=== PATIENT | male | born 1970 | race African-American/Black ===

== ENCOUNTER 2021-05-22 18:42 | Emergency (ER) | payer OTHER, SELFPAY ==
[2021-05-22] VITALS (21 sets, daily range): BP systolic 108–122; BP diastolic 76–89; PULSE 75–102; RESP 6–24; TEMP 36.4; O2SAT 96–100
--- NOTE | ~2021-05-22 | XR_ITS ---
EXAMINATION: XR chest 2V DATE: 05/22/2021 20:06 INDICATION: Low abdominal pain. TECHNIQUE: Frontal and lateral views of the chest were obtained. COMPARISON: None. FINDINGS: The lungs are hyperexpanded with lucencies, consistent with emphysema. There is mild atelec tasis versus scarring in the midlung zones. No pleural effusion or pneumothorax. The heart size is no rmal. IMPRESSION: 1. Emphysema. 2. Mild atelectasis versus scarring in the midlung zones. Reviewed, dictated and finalized at location E. 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
--- NOTE | ~2021-05-22 | CT_ITS ---
EXAMINATION: CT abdomen pelvis w con DATE: 05/22/2021 20:51 INDICATION: Low abdominal pain. Groin pain. TECHNIQUE: Computed tomography (CT) of the abdomen and pelvis was performed with 100 mL Omnipaque 350 intravenous contrast. Automated exposure control and iterative reconstruction technique were employe d. The dose-length product was 173.87 mGy-cm. COMPARISON: None. FINDINGS: The visualized portions of the lung bases demonstrate mild emphysema and mild atelectasis. No pleural effusion. The heart size is normal. No pericardial effusion. There is a 4 mm cyst in the l iver. The gallbladder is normal. Calcifications in the spleen are consistent with old granulomatous d isease. The pancreas, adrenal glands, and kidneys are normal. There are no dilated loops of bowel. Th e appendix is not visualized. There are no pathologically enlarged lymph nodes. There is no free intr aperitoneal fluid. There is a benign bone island in right femoral head. There is mild lumbar spondylo sis. IMPRESSION: 1. No etiology for the patient's symptoms. Reviewed, dictated and finalized at location E. 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
[2021-05-22 20:00] LABS: Basophils Percent Auto 0.8 % (0.2-1.2); Eosinophils Absolute Auto 0.2 K/mm3 (0-0.3); Eosinophils Percent Auto 3.2 % (0-4.4); Hematocrit 37.8 % (42.0-52.0); Hemoglobin 12.5 g/dL (14.0-18.0); Immature Granulocyte Absolute 0.01 K/mm3 (0.00-0.031); Immature Granulocyte Percent A 0.2 % (0-0.5); Lymphocytes Absolute Auto 2.16 K/mm3 (0.9-3.2); Lymphocytes Percent Auto 45.4 % (18.3-44.2); Mean Corpuscular HGB Conc 33.1 g/dl (32-36); Mean Corpuscular Volume 84.8 fl (80-100); Mean Platelet Volume 8.2 fl (7.4-10.4); Monocytes Absolute Auto 0.3 K/mm3 (0.1-0.6); Monocytes Percent Auto 6.9 % (2.6-8.5); Neutrophils Absolute Auto 2.1 K/mm3 (1.3-6.7); Neutrophils Percent Auto 43.5 % (45.5-73.1); Platelet Count Result 309 k/mm3 (150-375); Red Blood Count 4.46 M/mm3 (4.6-6.20); Red Cell Distribution Width 15.3 % (11.5-14.5); White Blood Count 4.8 K/mm3 (4.5-10.0)
[2021-05-22] MEDS: SODIUM CHLORIDE 0.9% IV 1,000 ML 999 ML IV CONT (20:06)
[2021-05-22 20:14] LABS: Alanine Aminotransferase 17 U/L (4-50); Albumin Level 4.1 g/dL (3.5-5.1); Alkaline Phosphatase 84 U/L (38-126); Anion Gap 3 mmol/L (8-16); Aspartate Amino Transferase 29 U/L (17-59); Bilirubin,Total 0.2 mg/dL (0.2-1.3); Blood Urea Nitrogen 11 mg/dL (9-20); Carbon Dioxide 26 mmol/L (22-30); Chloride 106 mmol/L (98-107); Estimated CRCL calculation 67 ml/min; Estimated Glomerular Filt Rate > 60; Glucose 83 mg/dL (65-110); Lipase 164 U/L (23-300); Potassium 3.9 mmol/L (3.4-5.0); Sodium 135 mmol/L (137-145)
[2021-05-22 21:19] LABS: Add Urine Microscopic? NO; Appearance Urine Clear (Clear); Bilirubin Urine Negative (Negative); Blood Urine Negative (Negative); Color Urine Straw (Yellow); Glucose Urine UA Negative (Negative); Ketones Urine Negative (Negative); Leukocyte Esterase Ur Negative LEU/UL (Negative); Nitrate Urine Negative (Negative); Protein Urine Negative (Negative); Specific Grav Ur 1.024 (1.001-1.035); Urobilinogen Urine Negative mg/dL (<2.0)
--- NOTE | 2021-05-22 21:57 | ED.GENADULT ---
HPI - General Adult General Chief complaint: Abdominal Pain Stated complaint: Groin Pain Time Seen by Provider: 05/22/21 18:59 History of Present Illness HPI narrative: Patient is a 51-year-old male who presents ER with lower abdominal pain. Located right lower quadrant. Moves into his back from his hips. Ongoing over the last couple of months but has worsened over the last 3 days. No known injury. Worse with movement and palpation. Makes him feel like he needs to have a bowel movement but does not improve when he takes a laxative or prunes. No history of constipation. Denies urinary frequency urgency or dysuria. No hematuria. No history of kidney stones. No history of diverticulitis. Last colonoscopy 2 years ago. Reports it was normal. Endorses recent weight loss. Related Data Allergies Allergy/AdvReac Type Severity Reaction Status Date / Time No Known Allergies Allergy Verified 05/22/21 18:48 Review of Systems Review of Systems: All systems reviewed & are unremarkable except as noted in HPI and below Constitutional: Constitutional: Denies chills, Denies fever(s) and Denies weakness ENT: Denies nasal congestion and Denies sore throat Gastrointestinal: Gastrointestinal: Reports abdominal pain, Reports bloating, Reports constipation, Denies nausea and Denies vomiting Genitourinary: Genitourinary: Denies oliguria, Denies dysuria, Denies urinary frequency and Denies urinary incontinence Musculoskeletal: Musculoskeletal: Denies back pain and Denies muscle cramps Neurologic: Denies focal weakness and Denies numbness PMFSH Past Medical History Medical History (Updated 05/22/21 @ 22:05 by Tanner Landis MD) Healthy adult male Surgical History Surgical History (Updated 05/22/21 @ 22:05 by Tanner Landis MD) History of colonoscopy Social History Social History (Updated 05/22/21 @ 22:05 by Tanner Landis MD) Smoking status: Current every day smoker Exam Narrative: GENERAL: Well-appearing, thin, and in no acute distress. HEAD: Normocephalic, atraumatic. CHEST: Clear to auscultation. No respiratory distress. HEART: Regular rate and rhythm. Normal peripheral pulses. ABDOMEN: Soft, nondistended. Tender palpation right lower quadrant with voluntary guarding. EXTREMITIES: Normal range of motion. No edema. SKIN: Warm, dry, no rash. NEURO: N Alert and oriented x3. PSYCH: Normal mood and affect. Course Course Emergency Course: Unremarkable evaluation. Unsure if cause of patient's discomfort. Recommend scheduled anti-inflammatories and follow-up with PCP. reporting patient may be having retrograde ejaculation. Recommend he see a urologist. No evidence of infection to indicate prostatitis. Vital Signs Vital signs: Vital Signs Temperature 97.5 F L 05/22/21 18:46 Pulse Rate 102 H 05/22/21 18:46 Respiratory Rate 18 05/22/21 18:46 Blood Pressure 122/82 05/22/21 18:46 Pulse Oximetry 99 05/22/21 18:46 Temperature 97.5 F L 05/22/21 18:46 Pulse Rate 90 05/22/21 19:46 Respiratory Rate 12 05/22/21 19:46 Blood Pressure 113/82 05/22/21 19:45 Pulse Oximetry 100 05/22/21 19:46 Medical Decision Making Vital Signs Vital Signs: Vital Signs Temperature 97.5 F L 05/22/21 18:46 Pulse Rate 102 H 05/22/21 18:46 Respiratory Rate 18 05/22/21 18:46 Blood Pressure 122/82 05/22/21 18:46 Pulse Oximetry 99 05/22/21 18:46 Temperature 97.5 F L 05/22/21 18:46 Pulse Rate 90 05/22/21 19:46 Respiratory Rate 12 05/22/21 19:46 Blood Pressure 113/82 05/22/21 19:45 Pulse Oximetry 100 05/22/21 19:46 Lab Data Result diagrams: 05/22/21 19:52 05/22/21 19:52 Labs: Lab Results 05/22/21 05/22/21 05/22/21 Range/Units 19:52 19:52 21:09 WBC 4.8 (4.5-10.0) K/mm3 RBC 4.46 L (4.6-6.20) M/mm3 Hgb 12.5 L (14.0-18.0) g/dL Hct 37.8 L (42.0-52.0) % MCV 84.8 (80-100) fl MCH 28.0 (26-34)
== END 2021-05-22 22:20 | disposition home or self-care (01) ==
PROVIDERS: Emergency Provider Emergency Medicine; PCP Internal Medicine
DX: R10.31 Right lower quadrant pain (principal); F17.200 Nicotine dependence, unspecified, uncomplicated; J43.9 Emphysema, unspecified
CPT/HCPCS: 36415; 71046; 74177; 80053; 81003; 83690; 85025; 96360; 99284; J7030; Q9967

== ENCOUNTER 2025-03-11 14:36 | Emergency (ER) | payer OTHER, SELFPAY ==
[2025-03-11] VITALS (35 sets, daily range): BP systolic 96–140; BP diastolic 63–116; PULSE 84–116; RESP 6–45; TEMP 36.6–37; O2SAT 87–100
--- NOTE | ~2025-03-11 | XR_ITS ---
EXAMINATION: XR chest 1V portable COMPARISON: No comparisons available. HISTORY: ABI, asthma FINDINGS: The lungs are clear, no effusion. No pneumothorax. Heart is normal size. Mediastinal and hilar contours are within normal limits. Bony thorax no acute abnormality. Miscellaneous: None Impression: No acute cardiopulmonary abnormality. Reviewed, dictated and finalized at location [facility] [employer] Impression: No acute cardiopulmonary abnormality.
--- NOTE | 2025-03-11 14:42 | ECG_ITS ---
Test Date: 2025-03-11 15:05:23 Measurements Intervals Velma Rate: 98 P: 89 HI: 155 QRS: 82 QRSD: 78 T: 70 QT: 354 QTc: 453 Interpretive Statements SINUS RHYTHM RIGHT ATRIAL ENLARGEMENT POSSIBLE LEFT ATRIAL ENLARGEMENT NONSPECIFIC ST & T-WAVE ABNORMALITY- INFERIOR LEADS BASELINE ARTIFACT- I, II, III, AVR, AVL, V1 BORDERLINE ECG No previous ECG available for comparison Electronically Signed On 03-11-2025 15:24:37 POWDER WORKER by Dean Roberts D.O.
[2025-03-11] MEDS: MIDAZOLAM HCL (*CRX) 2 MG/2 ML VIAL IV PUSH (14:52)
[2025-03-11] MEDS: LACTATED RINGERS 1,000 ML 999 ML IV CONT (14:57)
[2025-03-11 15:06] LABS: Fractional Inspired Oxygen 100 %; HCO3 VBG 20.3 mEq/l (24.0-30.0); PCO2 VBG 31.0 mmHg (42.0-48.0)
[2025-03-11 15:11] LABS: Hematocrit 51.0 % (42.0-52.0); Hemoglobin 16.7 g/dL (14.0-18.0); Immature Granulocyte Percent A 0.4 % (0-0.5); Lymphocytes Absolute Auto 1.30 K/mm3 (0.9-3.2); Mean Corpuscular HGB Conc 32.7 g/dl (32-36); Mean Corpuscular Hemoglobin 27.7 pg (26-34); Mean Corpuscular Volume 84.6 fl (80-100); Nucleated Red Blood Cells Absolute Auto 0.000 K/mm3 (0.0-0.012); Nucleated Red Blood Cells Perc 0.0 % (0.0-0.2); Platelet Count Result 376 k/mm3 (150-375); Red Blood Count 6.03 M/mm3 (4.6-6.20); White Blood Count 5.1 K/mm3 (4.5-10.0)
[2025-03-11] MEDS: ALBUTEROL SULFATE NEB 2.5 MG/3 ML INH 15 MG (16:07)
[2025-03-11] MEDS: ALBUTEROL SULFATE NEB 2.5 MG/3 ML INH (16:08)
[2025-03-11 16:10] LABS: PO2 VBG < 27.0 mmHg (35.0-45.0); pH VBG 7.435 (7.300-7.400)
[2025-03-11 16:11] LABS: Non-Invasive Expiratory Pressure 8 CMH2O; Non-Invasive Inspiratory Pressure 16 CMH2O; Non-Invasive Vent Rate 20 /MIN
[2025-03-11] MEDS: MAGNESIUM SULF 2 GM/WATER 50ML 2 GM/50 ML BAG IVPB (16:21)
[2025-03-11 16:26] LABS: Alanine Aminotransferase 24 U/L (6-50); Albumin Level 4.4 g/dL (3.5-5.1); Alkaline Phosphatase 80 U/L (38-126); Anion Gap 7 mmol/L (4-12); Aspartate Amino Transferase 31 U/L (17-59); Bilirubin,Total 0.5 mg/dL (0.2-1.3); Blood Urea Nitrogen 24 mg/dL (9-20); Calcium 9.9 mg/dL (8.4-10.2); Carbon Dioxide 27 mmol/L (22-30); Chloride 101 mmol/L (98-107); Estimated Glomerular Filt Rate > 60; Glucose 115 mg/dL (65-110); Magnesium 2.2 mg/dL (1.6-2.3); Potassium 4.2 mmol/L (3.4-5.0); Sodium 135 mmol/L (137-145); Total Protein 7.5 g/dL (6.3-8.2)
[2025-03-11 16:37] LABS: NT Pro B Type Natriuretic Pept 95 pg/mL (19.9-100); Troponin I < 0.012 ng/mL (0.000-0.034)
[2025-03-11 16:50] LABS: Influenza A QL RT-PCR Negative (Negative); Influenza B QL RT-PCR Negative (Negative); RSV RNA, RT-PCR Negative (Negative); SARS-CoV-2 RNA PCR Negative (Negative)
[2025-03-11 16:56] LABS: Acetaminophen < 10 ug/mL (10-30); Salicylate < 1.0 mg/dL (2-20)
--- NOTE | 2025-03-11 17:56 | PC.NURSE ---
Pt removed from bipap and placed on 2LO2. SPO2 100%. Pt then placed on RA. SPO2 100%
--- NOTE | 2025-03-11 18:24 | ED.SOB ---
HPI - SOB/Dyspnea General Chief Complaint: Shortness of Breath/Dyspnea <Trinh De Paz MD - Last Filed: 03/11/25 18:35> Stated Complaint: SOB <Trinh De Paz MD - Last Filed: 03/11/25 18:35> Time Seen by Provider: 03/11/25 14:42 <Trinh De Paz MD - Last Filed: 03/11/25 18:35> History of Present Illness HPI Narrative: Patient with h/o asthma presents with ABI, ongoing for a while but much worse today, EMS called to pt at [facility] and started CPAP, nebs, gave solumedrol IM. <Trinh De Paz MD - Last Filed: 03/11/25 18:35> Related Data Home Medications: Home Medications ?Medication ?Instructions ?Recorded ?Confirmed ?Last Taken ?Type albuterol 90 mcg/actuation aerosol 90 mcg inhalation Q8-12H PRN asthma 03/11/25 03/11/25 03/10/25 History inhaler aripiprazole 10 mg tablet 10 mg PO HS 03/11/25 03/11/25 Unknown History clonidine HCl 0.2 mg tablet 0.2 mg PO DAILY 03/11/25 03/11/25 Unknown History fluoxetine 40 mg capsule 40 mg PO QAM 03/11/25 03/11/25 Unknown History hydroxyzine HCl 10 mg tablet 10 mg PO TID PRN itching 03/11/25 03/11/25 Unknown History mirtazapine 15 mg tablet 15 mg PO HS 03/11/25 03/11/25 Unknown History <Trinh De Paz MD - Last Filed: 03/11/25 18:35> Allergies/Adverse Reactions: Allergies Allergy/AdvReac Type Severity Reaction Status Date / Time No Known Allergies Allergy Verified 03/11/25 14:51 <Trinh De Paz MD - Last Filed: 03/11/25 18:35> Review of Systems Review of Systems: ROS unobtainable: Yes unobtainable due to medical condition <Trinh De Paz MD - Last Filed: 03/11/25 18:35> PMF Past Medical History Medical History: Medical History (Updated 03/12/25 @ 02:31 by Horace Elias DO) Healthy adult male <Trinh De Paz MD - Last Filed: 03/11/25 18:35> Surgical History Surgical History: Surgical History (Updated 05/22/21 @ 22:05 by Tanner Landis MD) History of colonoscopy <Trinh De Paz MD - Last Filed: 03/11/25 18:35> Social History Social History: Social History (Updated 05/22/21 @ 22:05 by Tanner Landis MD) Smoking status: Current every day smoker <Trinh De Paz MD - Last Filed: 03/11/25 18:35> Exam Narrative: EXAMINATION OF ORGAN SYSTEMS/BODY AREAS: Constitutional: Vital signs per nursing GENERAL: Significant respiratory distress, tripoding HEAD: Normal with no signs of head trauma. EYES: EOMI, conjunctiva normal ENT: Temporal wasting LUNGS: Coarse lung sounds HEART: [Regular rate and rhythm] ABD: [Soft], [nontender to palpation] EXT: Normal range of motion SKIN: [No rashes or lesions.] NEURO: [Alert. No gross focal sensory or strength deficits.] PSYCH: Extremely anxious affect <Trinh De Paz MD - Last Filed: 03/11/25 18:35> Course Course Emergency Course: 19:00 - Patient signed out to me (Dr. Elias) by off going provider Dr. De Paz at shift change. Patient is medically cleared, pending central intake for suicidal ideations. Central intake has evaluated the patient, agree that patient meets inpatient criteria for psychiatric hospitalization, will work on placement. Patient accepted for transfer by Dr. Griggs at [facility]. <Horace Elias DO - Last Filed: 03/12/25 05:07> Vital Signs Vital signs: Vital Signs Temperature 98 F 03/11/25 14:32 Pulse Rate 108 H 03/11/25 14:32 Respiratory Rate 32 H 03/11/25 14:32 Pulse Oximetry 100 03/11/25 14:32 Oxygen Delivery BiPAP 03/11/25 14:32 Temperature 98.6 F 03/11/25 23:34 Pulse Rate 106 H 03/11/25 23:34 Respiratory Rate 16 03/11/25 23:34 Blood Pressure 102/63 03/11/25 23:34 Pulse Oximetry 95 03/11/25 23:34 Oxygen Delivery BiPAP 03/11/25 15:05 <Trinh De Paz MD - Last Filed: 03/11/25 18:35> Vital Signs Temperature 98 F 03/11/25 14:32 Pulse Rate 108 H 03/11/25 14:32 Respiratory Rate 32 H 03/11/25 14:32 Pulse Oximetry 100 03/11/25 14:32 Oxygen Delivery BiPAP 03/11/25 14:32 Temperature 98.6 F 03/11/25 23:34 Pulse Rate 106 H 03/11/25 23:34 Respiratory Rate 16 03/11/25 23:34 Blood Pressure 102/63 03/11/25 23:34 Pulse Oximetry 95 03/11/25 23:34 Oxygen Delivery BiPAP 03/11/25 15:05 <Horace Elias DO - Last Filed: 03/12/25 05:07> [facility] MDM Narrative Medical decision making narrative: ED COURSE AND MEDICAL DECISION MAKIN-year-old male with acute dyspnea and wheezing likely due to acute asthma exacerbation based on history and exam. On exam he does appear to be in distress, tripoding, extremely anxious. Started on BiPAP, DuoNebs given, he already got steroids from EMS, magnesium is started. Patient monitored in the ED for a couple of hours and on reevaluation is feeling significantly better. Taken off BiPAP and oxygen. He is now very comfortable on room air, no respiratory distress or accessory muscle use. Good air movement bilateral lungs. Speaking full sentences. Unfortunately at this time, patient now says that he is actively suicidal, when asked if he had a plan, he says that there are many ways. He does have a history of depression and is supposed to be on multiple medications, but he has not seen a psychiatrist and a while, not taking his medications, partly because he is too busy at work and partly because he has no motivation to. He is having full conversations with his father here, they are both agreeable to possible transfer for psychiatric evaluation or hospitalization. Signed out to oncoming ER physician pending medical clearance pending urine labs, but in my assessment, patient is completely medically stable, he is not on oxygen, he has no respiratory distress, he has been off BiPAP for 2 hours without any issues. <Trinh De Paz MD - Last Filed: 03/11/25 18:35> Differential Diagnosis Differential Diagnosis: Asthma, pneumonia, COPD, suicidal/depression <Trinh De Paz MD - Last Filed: 03/11/25 18:35> Lab Data Result diagrams: 03/11/25 14:49 03/11/25 16:03 <Trinh De Paz MD - Last Filed: 03/11/25 18:35> Labs: Lab Results 03/11/25 03/11/25 03/11/25 Range/Units 14:48 14:49 16:03 WBC 5.1 (4.5-10.0) K/mm3 RBC 6.03 (4.6-6.20) M/mm3 Hgb 16.7 D (14.0-18.0) g/dL Hct 51.0 (42.0-52.0) % MCV 84.6 (80-100) fl MCH 27.7 (26-34) pg MCHC 32.7 (32-36) g/dl RDW 15.0 H (11.5-14.5) % Plt Count 376 H (150-375) k/mm3 MPV 8.4 (7.4-10.4) fl Immature Gran % (Auto) 0.4 (0-0.5) % Neut % (Auto) 70.0 (45.5-73.1) % Lymph % (Auto) 25.3 (18.3-44.2) % [place] % (Auto) 3.3 (2.6-8.5) % Eos % (Auto) 0.2 (0-4.4) % Baso % (Auto) 0.8 (0.2-1.2) % Lymph # (Auto) 1.30 (0.9-3.2) K/mm3 [place] # (Auto) 0.2 (0.1-0.6) K/mm3 Eos # (Auto) 0.0 (0-0.3) K/mm3 Baso # (Auto) 0.0 (0.0-0.1) K/mm3 Abs Immat Gran (auto) 0.02 (0.00-0.031) K/mm3 Absolute Neuts (auto) 3.6 (1.3-6.7) K/mm3 Absolute Nucleated RBC 0.000 (0.0-0.012) K/mm3 Nucleated RBC % 0.0 (0.0-0.2) % Expiratory Pressure 8 CMH2O Inspiratory Pressure 16 CMH2O Sodium 135 L (137-145) mmol/L Potassium 4.2 (3.4-5.0) mmol/L Chloride 101 (98-107) mmol/L Carbon Dioxide 27 (22-30) mmol/L Anion Gap 7 (4-12) mmol/L BUN 24 H D (9-20) mg/dL Creatinine 1.07 (0.7-1.3) mg/dL Estim Creat Clear Calc Not Reportable Estimated GFR > 60 (59 - ) Glucose 115 H (65-110) mg/dL Lactic Acid 4.4 H* (0.7-2.0) mmol/L Calcium 9.9 (8.4-10.2) mg/dL Magnesium 2.2 (1.6-2.3) mg/dL Total Bilirubin 0.5 (0.2-1.3) mg/dL AST 31 (17-59) U/L ALT 24 (6-50) U/L Alkaline Phosphatase 80 (38-126) U/L Troponin I < 0.012 (0.000-0.034) ng/mL NT-Pro-B Natriuret Pep 95 (19.9-100) pg/mL Total Protein 7.5 (6.3-8.2) g/dL Albumin 4.4 (3.5-5.1) g/dL TSH (Reflex) 0.881 (0.465-4.68) uIU/mL Urine Color (Yellow) Urine Appearance (Clear) Urine pH (5.0-9.0) Ur Specific [place] (1.001-1.035) Urine Protein (Negative) mg/dL Urine Glucose (UA) (Negative) mg/dL Urine Ketones (Negative) mg/dL Ur Blood (Man) (Negative) Urine Nitrate (Negative) Urine Bilirubin (Negative) Urine Urobilinogen (<2.0) mg/dL Add Ur Microanalysis Leukocyte Esterase Rfl (Negative) NINO/UL Urine RBC (0-2) /hpf Urine WBC (0-3) /hpf Ur Squamous Epith Cells (Few) /hpf Urine Bacteria /hpf Urine Casts Hyaline Casts (None) /lpf Salicylates < 1.0 L (2-20) mg/dL Urine Opiates Screen (Negative) Urine Methadone Screen (Negative) Acetaminophen < 10 L (10-30) ug/mL Ur Barbiturates Screen (Negative) Ur Phencyclidine Scrn (Negative) Ur Amphetamine Screen (Negative) U Benzodiazepines Scrn (Negative) Urine Cocaine Screen (Negative) U Cannabinoids Screen (Negative) Ethyl Alcohol < 10 (<10) mg/dL Influenza A (RT-PCR) Negative (Negative) Influenza B (RT-PCR) Negative (Negative) RSV (RT-PCR) Negative (Negative) SARS-CoV-2 RNA (RT-PCR) Negative (Negative) 03/11/25 03/11/25 Range/Units 18:16 18:38 WBC (4.5-10.0) K/mm3 RBC (4.6-6.20) M/mm3 Hgb (14.0-18.0) g/dL Hct (42.0-52.0) % MCV (80-100) fl MCH (26-34) pg MCHC (32-36) g/dl RDW (11.5-14.5) % Plt Count (150-375) k/mm3 MPV (7.4-10.4) fl Immature Gran % (Auto) (0-0.5) % Neut % (Auto) (45.5-73.1) % Lymph % (Auto) (18.3-44.2) % [place] % (Auto) (2.6-8.5) % Eos % (Auto) (0-4.4) % Baso % (Auto) (0.2-1.2) % Lymph # (Auto) (0.9-3.2) K/mm3 [place] # (Auto) (0.1-0.6) K/mm3 Eos # (Auto) (0-0.3) K/mm3 Baso # (Auto) (0.0-0.1) K/mm3 Abs Immat Gran (auto) (0.00-0.031) K/mm3 Absolute Neuts (auto) (1.3-6.7) K/mm3 Absolute Nucleated RBC (0.0-0.012) K/mm3 Nucleated RBC % (0.0-0.2) % Expiratory Pressure CMH2O Inspiratory Pressure CMH2O Sodium (137-145) mmol/L Potassium (3.4-5.0) mmol/L Chloride (98-107) mmol/L Carbon Dioxide (22-30) mmol/L Anion Gap (4-12) mmol/L BUN (9-20) mg/dL Creatinine (0.7-1.3) mg/dL Estim Creat Clear Calc Estimated GFR (59 - ) Glucose (65-110) mg/dL Lactic Acid 2.1 H (0.7-2.0) mmol/L Calcium (8.4-10.2) mg/dL Magnesium (1.6-2.3) mg/dL Total Bilirubin (0.2-1.3) mg/dL AST (17-59) U/L ALT (6-50) U/L Alkaline Phosphatase (38-126) U/L Troponin I (0.000-0.034) ng/mL NT-Pro-B Natriuret Pep (19.9-100) pg/mL Total Protein (6.3-8.2) g/dL Albumin (3.5-5.1) g/dL TSH (Reflex) (0.465-4.68) uIU/mL Urine Color Yellow (Yellow) Urine Appearance Clear (Clear) Urine pH 5.5 (5.0-9.0) Ur Specific [place] 1.024 (1.001-1.035) Urine Protein 1+ H (Negative) mg/dL Urine Glucose (UA) Negative (Negative) mg/dL Urine Ketones 2+ H (Negative) mg/dL Ur Blood (Man) Negative (Negative) Urine Nitrate Negative (Negative) Urine Bilirubin Negative (Negative) Urine Urobilinogen 1.0 (<2.0) mg/dL Add Ur Microanalysis Reviewed Leukocyte Esterase Rfl 1+ H (Negative) NINO/UL Urine RBC 0-2 (0-2) /hpf Urine WBC 21-50 H (0-3) /hpf Ur Squamous Epith Cells Occasional (Few) /hpf Urine Bacteria None seen /hpf Urine Casts >20 Hyaline Casts Present (None) /lpf Salicylates (2-20) mg/dL Urine Opiates Screen Negative (Negative) Urine Methadone Screen Negative (Negative) Acetaminophen (10-30) ug/mL Ur Barbiturates Screen Negative (Negative) Ur Phencyclidine Scrn Negative (Negative) Ur Amphetamine Screen Negative (Negative) U Benzodiazepines Scrn Positive A (Negative) Urine Cocaine Screen Positive A (Negative) U Cannabinoids Screen Positive A (Negative) Ethyl Alcohol (<10) mg/dL Influenza A (RT-PCR) (Negative) Influenza B (RT-PCR) (Negative) RSV (RT-PCR) (Negative) SARS-CoV-2 RNA (RT-PCR) (Negative) <Trinh De Paz MD - Last Filed: 03/11/25 18:35> Lab Results 03/11/25 03/11/25 03/11/25 Range/Units 14:48 14:49 16:03 WBC 5.1 (4.5-10.0) K/mm3 RBC 6.03 (4.6-6.20) M/mm3 Hgb 16.7 D (14.0-18.0) g/dL Hct 51.0 (42.0-52.0) % MCV 84.6 (80-100) fl MCH 27.7 (26-34) pg MCHC 32.7 (32-36) g/dl RDW 15.0 H (11.5-14.5) % Plt Count 376 H (150-375) k/mm3 MPV 8.4 (7.4-10.4) fl Immature Gran % (Auto) 0.4 (0-0.5) % Neut % (Auto) 70.0 (45.5-73.1) % Lymph % (Auto) 25.3 (18.3-44.2) % [place] % (Auto) 3.3 (2.6-8.5) % Eos % (Auto) 0.2 (0-4.4) % Baso % (Auto) 0.8 (0.2-1.2) % Lymph # (Auto) 1.30 (0.9-3.2) K/mm3 [place] # (Auto) 0.2 (0.1-0.6) K/mm3 Eos # (Auto) 0.0 (0-0.3) K/mm3 Baso # (Auto) 0.0 (0.0-0.1) K/mm3 Abs Immat Gran (auto) 0.02 (0.00-0.031) K/mm3 Absolute Neuts (auto) 3.6 (1.3-6.7) K/mm3 Absolute Nucleated RBC 0.000 (0.0-0.012) K/mm3 Nucleated RBC % 0.0 (0.0-0.2) % Expiratory Pressure 8 CMH2O Inspiratory Pressure 16 CMH2O Sodium 135 L (137-145) mmol/L Potassium 4.2 (3.4-5.0) mmol/L Chloride 101 (98-107) mmol/L Carbon Dioxide 27 (22-30) mmol/L Anion Gap 7 (4-12) mmol/L BUN 24 H D (9-20) mg/dL Creatinine 1.07 (0.7-1.3) mg/dL Estim Creat Clear Calc Not Reportable Estimated GFR > 60 (59 - ) Glucose 115 H (65-110) mg/dL Lactic Acid 4.4 H* (0.7-2.0) mmol/L Calcium 9.9 (8.4-10.2) mg/dL Magnesium 2.2 (1.6-2.3) mg/dL Total Bilirubin 0.5 (0.2-1.3) mg/dL AST 31 (17-59) U/L ALT 24 (6-50) U/L Alkaline Phosphatase 80 (38-126) U/L Troponin I < 0.012 (0.000-0.034) ng/mL NT-Pro-B Natriuret Pep 95 (19.9-100) pg/mL Total Protein 7.5 (6.3-8.2) g/dL Albumin 4.4 (3.5-5.1) g/dL TSH (Reflex) 0.881 (0.465-4.68) uIU/mL Urine Color (Yellow) Urine Appearance (Clear) Urine pH (5.0-9.0) Ur Specific [place] (1.001-1.035) Urine Protein (Negative) mg/dL Urine Glucose (UA) (Negative) mg/dL Urine Ketones (Negative) mg/dL Ur Blood (Man) (Negative) Urine Nitrate (Negative) Urine Bilirubin (Negative) Urine Urobilinogen (<2.0) mg/dL Add Ur Microanalysis Leukocyte Esterase Rfl (Negative) NINO/UL Urine RBC (0-2) /hpf Urine WBC (0-3) /hpf Ur Squamous Epith Cells (Few) /hpf Urine Bacteria /hpf Urine Casts Hyaline Casts (None) /lpf Salicylates < 1.0 L (2-20) mg/dL Urine Opiates Screen (Negative) Urine Methadone Screen (Negative) Acetaminophen < 10 L (10-30) ug/mL Ur Barbiturates Screen (Negative) Ur Phencyclidine Scrn (Negative) Ur Amphetamine Screen (Negative) U Benzodiazepines Scrn (Negative) Urine Cocaine Screen (Negative) U Cannabinoids Screen (Negative) Ethyl Alcohol < 10 (<10) mg/dL Influenza A (RT-PCR) Negative (Negative) Influenza B (RT-PCR) Negative (Negative) RSV (RT-PCR) Negative (Negative) SARS-CoV-2 RNA (RT-PCR) Negative (Negative) 03/11/25 03/11/25 Range/Units 18:16 18:38 WBC (4.5-10.0) K/mm3 RBC (4.6-6.20) M/mm3 Hgb (14.0-18.0) g/dL Hct (42.0-52.0) % MCV (80-100) fl MCH (26-34) pg MCHC (32-36) g/dl RDW (11.5-14.5) % Plt Count (150-375) k/mm3 MPV (7.4-10.4) fl Immature Gran % (Auto) (0-0.5) % Neut % (Auto) (45.5-73.1) % Lymph % (Auto) (18.3-44.2) % [place] % (Auto) (2.6-8.5) % Eos % (Auto) (0-4.4) % Baso % (Auto) (0.2-1.2) % Lymph # (Auto) (0.9-3.2) K/mm3 [place] # (Auto) (0.1-0.6) K/mm3 Eos # (Auto) (0-0.3) K/mm3 Baso # (Auto) (0.0-0.1) K/mm3 Abs Immat Gran (auto) (0.00-0.031) K/mm3 Absolute Neuts (auto) (1.3-6.7) K/mm3 Absolute Nucleated RBC (0.0-0.012) K/mm3 Nucleated RBC % (0.0-0.2) % Expiratory Pressure CMH2O Inspiratory Pressure CMH2O Sodium (137-145) mmol/L Potassium (3.4-5.0) mmol/L Chloride (98-107) mmol/L Carbon Dioxide (22-30) mmol/L Anion Gap (4-12) mmol/L BUN (9-20) mg/dL Creatinine (0.7-1.3) mg/dL Estim Creat Clear Calc Estimated GFR (59 - ) Glucose (65-110) mg/dL Lactic Acid 2.1 H (0.7-2.0) mmol/L Calcium (8.4-10.2) mg/dL Magnesium (1.6-2.3) mg/dL Total Bilirubin (0.2-1.3) mg/dL AST (17-59) U/L ALT (6-50) U/L Alkaline Phosphatase (38-126) U/L Troponin I (0.000-0.034) ng/mL NT-Pro-B Natriuret Pep (19.9-100) pg/mL Total Protein (6.3-8.2) g/dL Albumin (3.5-5.1) g/dL TSH (Reflex) (0.465-4.68) uIU/mL Urine Color Yellow (Yellow) Urine Appearance Clear (Clear) Urine pH 5.5 (5.0-9.0) Ur Specific [place] 1.024 (1.001-1.035) Urine Protein 1+ H (Negative) mg/dL Urine Glucose (UA) Negative (Negative) mg/dL Urine Ketones 2+ H (Negative) mg/dL Ur Blood (Man) Negative (Negative) Urine Nitrate Negative (Negative) Urine Bilirubin Negative (Negative) Urine Urobilinogen 1.0 (<2.0) mg/dL Add Ur Microanalysis Reviewed Leukocyte Esterase Rfl 1+ H (Negative) NINO/UL Urine RBC 0-2 (0-2) /hpf Urine WBC 21-50 H (0-3) /hpf Ur Squamous Epith Cells Occasional (Few) /hpf Urine Bacteria None seen /hpf Urine Casts >20 Hyaline Casts Present (None) /lpf Salicylates (2-20) mg/dL Urine Opiates Screen Negative (Negative) Urine Methadone Screen Negative (Negative) Acetaminophen (10-30) ug/mL Ur Barbiturates Screen Negative (Negative) Ur Phencyclidine Scrn Negative (Negative) Ur Amphetamine Screen Negative (Negative) U Benzodiazepines Scrn Positive A (Negative) Urine Cocaine Screen Positive A (Negative) U Cannabinoids Screen Positive A (Negative) Ethyl Alcohol (<10) mg/dL Influenza A (RT-PCR) (Negative) Influenza B (RT-PCR) (Negative) RSV (RT-PCR) (Negative) SARS-CoV-2 RNA (RT-PCR) (Negative) <Horace Elias DO - Last Filed: 03/12/25 05:07> ABG Data ABG results: 03/11/25 14:48 VBG pH 7.435 H* VBG pCO2 31.0 L VBG pO2 < 27.0 L VBG HCO3 20.3 L O2 Delivery Device Non-invasive vent O2 Liters/Min Not Reportable Vent Rate 20 FiO2 100 <Trinh De Paz MD - Last Filed: 03/11/25 18:35> 03/11/25 14:48 VBG pH 7.435 H* VBG pCO2 31.0 L VBG pO2 < 27.0 L VBG HCO3 20.3 L O2 Delivery Device Non-invasive vent O2 Liters/Min Not Reportable Vent Rate 20 FiO2 100 <Horace Elias DO - Last Filed: 03/12/25 05:07> Imaging Data Radiologist's impression: ITS Impressions Chest X-Ray 03/11/25 15:15 Impression: No acute cardiopulmonary abnormality. <Trinh De Paz MD - Last Filed: 03/11/25 18:35> ITS Impressions Chest X-Ray 03/11/25 15:15 Impression: No acute cardiopulmonary abnormality. <Horace Elias DO - Last Filed: 03/12/25 05:07> Critical Care Time Critical Care Time Critical Care Time: Yes <Trinh De Paz MD - Last Filed: 03/11/25 18:35> Indication: respiratory distress <Trinh De Paz MD - Last Filed: 03/11/25 18:35> Initial evaluation, discuss w/ involved parties, attempting to gather old records: 10 minutes <Trinh De Paz MD - Last Filed: 03/11/25 18:35> Documenting medical record: 5 minutes <Trinh De Paz MD - Last Filed: 03/11/25 18:35> Review of results (EKG's, labs, imaging): 5 minutes <Trinh D ePaz MD - Last Filed: 03/11/25 18:35> Serial repeat bedside evaluation: 10 minutes <Trinh De Paz MD - Last Filed: 03/11/25 18:35> Discussing case with multiple memebers of the care team and consultants: 5 minutes <Trinh De Paz MD - Last Filed: 03/11/25 18:35> Total Critical Care Time: 35 <Trinh De Paz MD - Last Filed: 03/11/25 18:35> 35 <Horace Elias DO - Last Filed: 03/12/25 05:07> Discharge Plan Discharge Clinical Impression: Asthma exacerbation, Depression with suicidal ideation, Polysubstance abuse <Trinh De Paz MD - Last Filed: 03/11/25 18:35> Patient Disposition: Psychiatric Hosp <Trinh De Paz MD - Last Filed: 03/11/25 18:35> Condition: Serious <Trinh De Paz MD - Last Filed: 03/11/25 18:35> Patient Language: Hungarian <Trinh De Paz MD - Last Filed: 03/11/25 18:35> Prescriptions: New albuterol sulfate 90 mcg/actuation aerosol powdr breath activated 2 inh inhalation Q4-6H PRN (Reason: shortness of breath or wheezing) Qty: 1 0RF prednisone 20 mg tablet 40 mg PO DAILY 5 Days Qty: 10 0RF No Action naproxen 375 mg tablet 375 mg PO BID Qty: 14 0RF albuterol 90 mcg/actuation aerosol 90 mcg inhalation Q8-12H PRN (Reason: asthma) Rx Instructions: 2 puffs fluoxetine 40 mg capsule 40 mg PO QAM clonidine HCl 0.2 mg tablet 0.2 mg PO DAILY mirtazapine 15 mg tablet 15 mg PO HS hydroxyzine HCl 10 mg tablet 10 mg PO TID PRN (Reason: itching) aripiprazole 10 mg tablet 10 mg PO HS <Trinh De Paz MD - Last Filed: 03/11/25 18:35> Follow-up/Referrals: Emely,MD Bettye [Primary Care Provider] <Trinh De Paz MD - Last Filed: 03/11/25 18:35> Time of Disposition: 02:30 <Trinh De Paz MD - Last Filed: 03/11/25 18:35> 02:30 <Horace Elias DO - Last Filed: 03/12/25 05:07>
[2025-03-11 18:52] LABS: Cannabinoid Screen Urine Positive (Negative)
[2025-03-11] MEDS: LACTATED RINGERS 500 ML 999 ML IV CONT (19:05)
[2025-03-11 19:29] LABS: Need Manual Microscopic Reviewed; Non Pathogenic Casts >20
[2025-03-11 19:59] LABS: Add Urine Microscopic? YES; Appearance Urine Clear (Clear); Glucose Urine UA Negative (Negative); Leukocyte Esterase Ur 1+ LEU/UL (Negative); Nitrate Urine Negative (Negative); Specific Grav Ur 1.024 (1.001-1.035)
--- NOTE | 2025-03-11 20:00 | PC.NURSE ---
When reassessing patients [place] patient states he never really had a plan, but if he would he would blow his brains out.
--- NOTE | 2025-03-11 23:39 | PC.NURSE ---
[id number] called stated that they are unable to take the pt
--- NOTE | 2025-03-11 23:41 | PC.NURSE ---
[facility] called took pt hx stated that they will give all the information to the psychiatrist and give us a call back. [id number]
--- NOTE | 2025-03-12 00:02 | PC.NURSE ---
[facility] Called took Hx wanted an add on TSH order placed will call us back .
--- NOTE | 2025-03-12 00:07 | PC.NURSE ---
[facility] Called to accept pt. Pt can arrive anytime after 10am. Accepting Provider Ashley Griggs [phone].
--- NOTE | 2025-03-12 00:17 | PC.NURSE ---
Spoke with Linh Matos from [facility] gave update on pt
[2025-03-12 01:12] LABS: Thyroid Stimulating Hormone Reflex 0.881 uIU/mL (0.465-4.68)
--- NOTE | 2025-03-12 06:41 | PC.NURSE ---
This RN called pt sanjay Barry at [phone] and gave update on pt status per pt request.
[2025-03-12 06:58] VITALS: BP 109/69; PULSE 93; RESP 16; TEMP 36.8; O2SAT 95
--- NOTE | 2025-03-12 08:24 | PC.NURSE ---
Report recieved Pt sleeping comfortably. Breakfast tray ordered.
[2025-03-12 10:46] VITALS: BP 99/59; PULSE 76; RESP 18; O2SAT 99
== END 2025-03-12 10:59 ==
PROVIDERS: Emergency Medicine; Emergency Provider Student in an Organized Health Care Education/Training Program; PCP Internal Medicine
DX: J45.901 Unspecified asthma with (acute) exacerbation (principal); F32.A Depression, unspecified; R45.851 Suicidal ideations; Z20.822 Contact with and (suspected) exposure to COVID-19; T43.206A Underdosing of unspecified antidepressants, initial encounter; Z91.128 Patient's intentional underdosing of medication regimen for other reason; F17.200 Nicotine dependence, unspecified, uncomplicated
CPT/HCPCS: 36415; 53060; 71045; 80053; 80143; 80179; 80307; 81001; 82077; 82803; 83605; 83735; 83880; 84443; 84484; 85025; 87040; 87086; 87637; 93005; 94640; 94660; 96361; 96365; 96366; 96375; 99285; J2250; J3475; J7120